=== PATIENT | male | born 1985 | race Caucasian/White ===

== ENCOUNTER → 2022-07-31 12:07 | Outpatient (BNVA) | payer OTHER, SELFPAY | PROVIDERS: PCP Internal Medicine; Visit Provider Psychiatry & Neurology Psychiatry | DX: Z01.818 Encounter for other preprocedural examination (principal); F31.2 Bipolar disorder, current episode manic severe with psychotic features; F06.8 Other specified mental disorders due to known physiological condition; S06.9X0S Unspecified intracranial injury without loss of consciousness, sequela; F43.12 Post-traumatic stress disorder, chronic; F31.5 Bipolar disorder, current episode depressed, severe, with psychotic features | CPT/HCPCS: 90792 ==

== ENCOUNTER 2022-08-01 06:35 | Outpatient (REF) | payer OTHER, SELFPAY ==
--- NOTE | 2022-08-01 06:40 | ECG_ITS ---
Test Reason : bipoar Blood Pressure : / mmHG Vent. Rate : 088 BPM Atrial Rate : 088 BPM P-R Int : 156 ms QRS Dur : 078 ms QT Int : 356 ms P-R-T Axes : 059 042 033 degrees QTc Int : 430 ms Normal sinus rhythm Normal ECG No previous ECGs available Referred By: Adam Anderson Electronically Signed By:JUNITO RODRIGUEZ MD
[2022-08-01 06:51] LABS: MANUAL DIFF FLAG NO
[2022-08-01 07:25] LABS: Basophils Percent Auto 0.9 % (0-2); Eosinophils Absolute Auto 0.2 X10*3/uL (0.0-0.4); Eosinophils Percent Auto 3.8 % (0-4); Hematocrit 45.3 % (42.0-52.0); Hemoglobin 15.1 g/dl (14.0-18.0); Imm Gran Abs Auto 0.02 X10*3/uL (0.00-0.03); Imm Gran Pct Auto 0.4 % (0.0-0.4); Lymphocytes Absolute Auto 1.9 X10*3/uL (1.2-4.9); Lymphocytes Percent Auto 41.2 % (20-40); Mean Corpuscular HGB Conc 33.3 g/dl (31.0-36.0); Mean Corpuscular Hemoglobin 30.8 pg (27.0-33.0); Mean Corpuscular Volume 92.4 fL (80.0-98.0); Mean Platelet Volume 10.4 fL (9.4-12.4); Monocytes Absolute Auto 0.3 X10*3/uL (0.1-1.2); Monocytes Percent Auto 6.6 % (2-11); Neutrophils Absolute Auto 2.2 x10*3/uL (2.0-8.3); Neutrophils Percent Auto 47.1 % (45-73); Platelet Count 238 X10*3/uL (160-400); Red Cell Distribution Width 13.9 % (11.0-16.0); White Blood Count 4.7 X10*3/uL (4.8-10.8)
[2022-08-01 07:47] LABS: Alanine Aminotransferase 28 U/L (0-40); Albumin Level 4.4 g/dL (3.5-5.0); Alkaline Phosphatase 69 U/L (39-117); Anion Gap 12 (12-20); Aspartate Amino Transferase 16 U/L (5-37); Bilirubin Total 0.4 mg/dL (0.0-1.0); Blood Urea Nitrogen 12 mg/dL (9-16); Calcium 9.1 mg/dL (8.4-10.2); Carbon Dioxide 27 mmol/L (22-29); Chloride 103 mmol/L (96-108); Estimated Glomerular Filt Rate > 60; Glucose Fasting 124 mg/dL (60-99); Potassium 4.1 mmol/L (3.3-5.1); Sodium 138 mmol/L (135-145)
== END 2022-08-01 06:36 | disposition home or self-care (01) ==
LOC: HO.LAB 06:35
PROVIDERS: Visit Provider Psychiatry & Neurology Psychiatry
DX: Z01.818 Encounter for other preprocedural examination (principal); F31.2 Bipolar disorder, current episode manic severe with psychotic features
CPT/HCPCS: 36415; 80053; 85025; 93005

== ENCOUNTER 2022-08-04 06:00 | Day surgery (SDC) | payer OTHER, SELFPAY ==
[2022-08-04] VITALS (7 sets, daily range): BP systolic 113–164; BP diastolic 65–88; PULSE 64–88; RESP 18–32; TEMP 36.6–36.8; O2SAT 93–98; BMI 30.8
[2022-08-04 06:37] LABS: COVID-19 Test Negative (Negative); IDNOW Serial# BCCEAD1C
--- NOTE | 2022-08-04 07:22 | HO.ANESPROP2 ---
[facility] Active Problems Active Problems: All Active Problems (Updated 08/03/22 @ 14:01 by Arsalan Lucero RN) Bipolar disorder, current episode manic severe with psychotic features (Acute) Pre-op evaluation (Acute) Past Medical History Medical History (Updated 08/03/22 @ 14:01 by Arsalan Lucero RN) Adjustment disorder Asthma Bipolar 1 disorder Bipolar affective disorder Cannabis dependence Chest pain Chronic post-traumatic stress disorder (PTSD) Frequent headaches Generalized anxiety disorder Knee pain Late effect of brain injury Male erectile disorder Metabolic syndrome X Nicotine dependence Nondependent cocaine abuse Photophobia Schizotypal personality disorder Spermatocele of epididymis Xerosis due to atopic dermatitis Family History Family history of problems with anesthesia: No Surgical History History of Problems with Anesthesia: No Social History Social History Patient Tobacco Use Status: Current everyday Tobacco user Use of substances other than those prescribed or required for medical reasons: Yes Are you DNR?: No Advance Directives: No Advance Directives Information Provided: Yes Meds Allergies Allergy/AdvReac Type Severity Reaction Status Date / Time clozapine [From Clozaril] Allergy Flushing Verified 08/03/22 14:12 doxycycline Allergy Angioedema Verified 07/31/22 12:59 metformin Allergy Headache Verified 08/03/22 14:12 mometasone furoate Allergy Rash Verified 08/03/22 14:12 risperidone [From Risperdal] Allergy Chest Pain Verified 08/03/22 14:12 Home Medications Medication Instructions Recorded Confirmed Last Taken Type Multivitamin And Mineral 1 tab PO DAILY 08/03/22 08/03/22 Unknown History acetaminophen 650 mg tablet 650 mg PO Q6H PRN Pain 08/03/22 08/03/22 Unknown History albuterol 90 mcg/actuation aerosol 180 mcg inhalation Q4-6H PRN 08/03/22 08/03/22 Unknown History inhaler Shortness Of Breath Or Wheezing aripiprazole 20 mg tablet 20 mg PO DAILY 08/03/22 08/03/22 Unknown History benztropine 1 mg tablet 1 mg PO DAILY 08/03/22 08/03/22 Unknown History cariprazine 6 mg capsule 6 mg PO DAILY 08/03/22 08/03/22 Unknown History divalproex 500 mg tablet,extended 2,500 mg PO DAILY 08/03/22 08/03/22 Unknown History release 24 hr hydroxyzine HCl 50 mg tablet 50 mg PO Q4-6H PRN Anxiety 08/03/22 08/03/22 Unknown History methyl salicylate 10 % topical 1 appl topical QID PRN 08/03/22 08/03/22 Unknown History cream pain/stiffness right elbow nicotine (polacrilex) 2 mg gum 2 mg buccal Q2H 08/03/22 08/03/22 Unknown History propranolol-hydrochlorothiazid 10 mg PO TID 08/03/22 08/03/22 Unknown History trazodone 100 mg tablet 200 mg PO BEDTIME 08/03/22 08/03/22 Unknown History Exam Exam Date and Time: August 04, 2022721 Height,Weight and Vital Signs: Height 5 ft 10 in Weight 97.522 kg Last Vital Signs Temp 97.8 F 08/04/22 06:31 Pulse 88 08/04/22 06:31 Resp 28 H 08/04/22 06:31 BP 124/88 08/04/22 06:31 Pulse Ox 93 08/04/22 06:31 O2 Del Method 08/04/22 06:31 Pertinent Lab Results Pertinent Lab Results: Laboratory Tests 08/04/22 06:12 COVID-19 ([facility]) Negative COVID-19 Clin Com See Note Airway Mallampati Class: II TM Dist: >3cm Neck ROM: Full Heart: rrr Lungs: cta Assessment and Plan Assessment Anesthesia Assessment: Anesthesia Plan Discussed and Chart Reviewed Final Anesthetic Review Family History of Problems with Anesthesia: No History of Problems with Anesthesia: No NPO: Yes ASA Class: III Final Preanesthetic Review: No Changes in Pt Med Stat, Meds/Allgs Chart Reviewed and Consent Obtained/Reviewed Patient Risk: Intermediate Procedure Risk: Intermediate Anesthetic Plan Anesthetic Plan: GA Disposition: Standard PACU
--- NOTE | 2022-08-04 07:37 | MHC.SHP ---
Pre-Procedural Eval Section A Date of Service: 08/04/22 The patient is an INPATIENT: No Changes since office visit: Yes Patient answered all questions; No Cold of Flu in the past 2 weeks, No New Medical Problems and No Changes in Medication Section B Chief Complaint: Major depressive disorder, recurrent, severe with Allergies: Allergies Allergy/AdvReac Type Severity Reaction Status Date / Time clozapine [From Clozaril] Allergy Flushing Verified 08/03/22 14:12 doxycycline Allergy Angioedema Verified 07/31/22 12:59 metformin Allergy Headache Verified 08/03/22 14:12 mometasone furoate Allergy Rash Verified 08/03/22 14:12 risperidone [From Risperdal] Allergy Chest Pain Verified 08/03/22 14:12 Plan I have reviewed the history and physical and performed a pertinent physical examination on my patient. No changes have occurred unless specified.
--- NOTE | 2022-08-04 07:53 | HO.ECTPROC ---
ECT Procedure Note Diagnosis/Treatment Date of Service: 08/04/22 Diagnosis: Bipolar disorder Current Treatment Number: 1 Treatment: Maintenance Interval Clinical Notes: pt here for maintenance tx [place] tx course of 9 ECT Settings Device: THYMATRON DGx Electrode Placement: Bitemporal Program/Pulse Width: 0.50 Energy Percent: 100 Seizure Duration By EEG (in seconds): 83 Medications Administration General Anesthetic: Etomidate (16) Muscle Relaxant: Succinylcholine (100) Ancillary Medications Analgesics: Torodol - Pre ECT Anti-emetics: Zofran - Pre ECT Miscillaneous Medications: Midazolam Airway Management Airway Management: Bag Mask Ventilation Treatment Recommendations Notes: do not use versed post too sedating per anesthesia and robinal pre tx next tx f/u tx 1 week
--- NOTE | 2022-08-04 08:13 | P.CONAN_ITS ---
[facility] Active Problems Active Problems: All Active Problems (Updated 08/03/22 @ 14:01 by Arsalan Lucero RN) Bipolar disorder, current episode manic severe with psychotic features (Acute) Pre-op evaluation (Acute) Past Medical History Medical History (Updated 08/03/22 @ 14:01 by Arsalan Lucero RN) Adjustment disorder Asthma Bipolar 1 disorder Bipolar affective disorder Cannabis dependence Chest pain Chronic post-traumatic stress disorder (PTSD) Frequent headaches Generalized anxiety disorder Knee pain Late effect of brain injury Male erectile disorder Metabolic syndrome X Nicotine dependence Nondependent cocaine abuse Photophobia Schizotypal personality disorder Spermatocele of epididymis Xerosis due to atopic dermatitis Family History Family history of problems with anesthesia: No Surgical History History of Problems with Anesthesia: No Social History Social History Patient Tobacco Use Status: Current everyday Tobacco user Use of substances other than those prescribed or required for medical reasons: Yes Are you DNR?: No Advance Directives: No Advance Directives Information Provided: Yes Meds Allergies Allergy/AdvReac Type Severity Reaction Status Date / Time clozapine [From Clozaril] Allergy Flushing Verified 08/03/22 14:12 doxycycline Allergy Angioedema Verified 07/31/22 12:59 metformin Allergy Headache Verified 08/03/22 14:12 mometasone furoate Allergy Rash Verified 08/03/22 14:12 risperidone [From Risperdal] Allergy Chest Pain Verified 08/03/22 14:12 Active Medications: Current Medications Lactated Ringer's (Lr) 1,000 mls @ 50 mls/hr IVCONT .Q20H [facility] Lactated Ringer's (Lr) 1,000 mls @ 50 mls/hr IVCONT .Q20H [facility] Home Medications Medication Instructions Recorded Confirmed Last Taken Type Multivitamin And Mineral 1 tab PO DAILY 08/03/22 08/03/22 Unknown History acetaminophen 650 mg tablet 650 mg PO Q6H PRN Pain 08/03/22 08/03/22 Unknown H istory albuterol 90 mcg/actuation aerosol 180 mcg inhalation Q4-6H PRN 08/03/22 08/03/22 Unknown History inhaler Shortness Of Breath Or Wheezing aripiprazole 20 mg tablet 20 mg PO DAILY 08/03/22 08/03/22 Unknown History benztropine 1 mg tablet 1 mg PO DAILY 08/03/22 08/03/22 Unknown History cariprazine 6 mg capsule 6 mg PO DAILY 08/03/22 08/03/22 Unknown History divalproex 500 mg tablet,extended 2,500 mg PO DAILY 08/03/22 08/03/22 Unknown History release 24 hr hydroxyzine HCl 50 mg tablet 50 mg PO Q4-6H PRN Anxiety 08/03/22 08/03/22 Unknown History methyl salicylate 10 % topical 1 appl topical QID PRN 08/03/22 08/03/22 Unknown History cream pain/stiffness right elbow nicotine (polacrilex) 2 mg gum 2 mg buccal Q2H 08/03/22 08/03/22 Unknown History propranolol-hydrochlorothiazid 10 mg PO TID 08/03/22 08/03/22 Unknown History trazodone 100 mg tablet 200 mg PO BEDTIME 08/03/22 08/03/22 Unknown History Exam Exam Date and Time: August 04, 2022 0813 Height,Weight and Vital Signs: Height 5 ft 10 in Weight 97.522 kg Last Vital Signs Temp 97.8 F 08/04/22 06:31 Pulse 88 08/04/22 06:31 Resp 28 H 08/04/22 06:31 BP 124/88 08/04/22 06:31 Pulse Ox 93 08/04/22 06:31 O2 Del Method 08/04/22 06:31 Pertinent Lab Results Pertinent Lab Results: Laboratory Tests 08/04/22 06:12 COVID-19 ([facility]) Negative COVID-19 Clin Com See Note Airway Mallampati Class: II TM Dist: >3cm Neck ROM: Full Heart: rrr Lungs: cta Assessment and Plan Assessment Anesthesia Assessment: Anesthesia Plan Discussed and Chart Reviewed Final Anesthetic Review Family History of Problems with Anesthesia: No History of Problems with Anesthesia: No NPO: Yes ASA Class: III Final Preanesthetic Review: No Changes in Pt Med Stat, Meds/Allgs Chart Reviewed and Consent Obtained/Reviewed Patient Risk: Intermediate Procedure Risk: Intermediate Anesthetic Plan Anesthetic Plan: GA Disposition: Standard PACU
== END 2022-08-04 09:30 | disposition home or self-care (01) ==
PROVIDERS: PCP Internal Medicine; Visit Provider Psychiatry & Neurology Psychiatry
PROC: (CPT 90870; principal; 2022-08-04 07:00)
DX: F31.5 Bipolar disorder, current episode depressed, severe, with psychotic features (principal); J45.909 Unspecified asthma, uncomplicated; Z20.822 Contact with and (suspected) exposure to COVID-19; F17.210 Nicotine dependence, cigarettes, uncomplicated
CPT/HCPCS: 87635; 90870; J0330; J1885; J2250; J2405